=== PATIENT | female | born 1960 | race Two or more races ===

== ENCOUNTER 2024-09-11 11:26 | Outpatient (RCR) | payer MEDICARE, MEDICAID, SELFPAY ==
--- NOTE | 2024-09-11 11:43 | PT.OIERPT ---
PT OP Initial Eval Patient Information Outpatient Physical Therapy Treatment Date: 09/11/24 Visit Reasons: Pain in RT shoulder Medical Diagnosis: M25.511 Start of Care: 09/11/24 Date of Onset: 04/18/24 Smoking Status Smoking Status: Never smoker Initial Assessment Subjective: Pt is 64 yr old icelandic speaking female who reports she fell in April and has had R hand and wrist pain that runs up the arm into the shoulder. She denies R shoulder pain but the wrist hurts. Imaging: mild to moderate OA change is present Pt goal: to get rid of the R wrist and hand pain Objective: R shoulder AROM: Strength: FF: full 4/5 ABd: full 4/5 ER: full 4/5 Assessment: Pt presents with full AROM of R shoulder and good strength. She doesn't need therapy for the R shoulder but would benefit from therapy on the R wrist and hand. The therapy order is for the R shoulder and we need an order for the R wrist and hand to treat that. Short Term and Penitentiary Goals Eval and D/C Treatment Plan Eval and D/C Certification Dates: 09/11/27 Procedure Charges OP PT Eval Mod Complex 30 minutes: Yes
== END 2024-09-14 23:59 | disposition home or self-care (01) ==
LOC: CPTX 11:26
PROVIDERS: PCP Physician Assistant; Referring Provider Physician Assistant; Visit Provider Physician Assistant
DX: M25.511 Pain in right shoulder (principal); M25.531 Pain in right wrist; M79.641 Pain in right hand
CPT/HCPCS: 97162

== ENCOUNTER 2024-10-09 09:00 | Outpatient (RCR) | payer MEDICARE, MEDICAID, SELFPAY ==
--- NOTE | 2024-10-09 09:52 | CTCFLWUP_ITS ---
[facility] [address], [place] [address] FOLLOW-UP NOTE Date: 10/09/2024 MR#: [id number] Name: SUSAN CHARLES : 1960 Dx: C54.1 Malignant neoplasm of endometrium Identification. Patient with vaginal hysterectomy 01/25/2019 show invasive endometrial carcinoma FIGO grade 1 with no extension cervix with 2 positive nodes of 13 removed. Stage III C1 chemotherapy at [facility] consisting of 6 cycles of CarboTaxol with ration therapy sandwiched between the third and fourth cycles. 5000 cGy VMAT completed 07/07/2020. CT scan 08/22/2023 chest abdomen pelvis 3 mm pulm nodule right middle lobe and left lower lobe with no finding of met disease in abdomen pelvis. Repeat CT December 27, 2023 chest stable pulmonary nodules. Labs 10/02/2024 CA125 normal at 9.6. Pelvic exam essentially unremarkable. I will see her in 6 months with another blood test and CT scan Electronically signed by: Shivam Hu M.D. 10/09/2024 9:50 AM
== END 2024-10-15 23:59 | disposition home or self-care (01) ==
LOC: SCTC 09:00
PROVIDERS: PCP Physician Assistant; Referring Provider Radiology Therapeutic Radiology; Visit Provider Radiology Therapeutic Radiology
DX: C54.1 Malignant neoplasm of endometrium (principal); Z90.710 Acquired absence of both cervix and uterus; Z92.3 Personal history of irradiation; R91.8 Other nonspecific abnormal finding of lung field
CPT/HCPCS: 99213; G0463

== ENCOUNTER → 2025-02-20 | Outpatient (CLI) | payer MEDICARE, MEDICAID, SELFPAY ==
[2025-02-20 15:22] LABS: Basophils # (Auto) 0.0 Thou/mm3 (0.0-0.2); Basophils % (Auto) 1 % (0-2.5); Eosinophils # (Auto) 0.1 Thou/mm3 (0.0-0.5); Eosinophils % (Auto) 3 % (0-10); Hematocrit 40.0 % (36.0-46.0); Hemoglobin 13.1 g/dL (12.0-16.0); Immature Granulocytes Auto 0.00 Thou/mm3 (0.00-0.00); Lymphocytes # (Auto) 1.6 Thou/mm3 (1.0-4.8); Lymphocytes % (Auto) 37 % (10-50); Mean Corpuscular HGB Conc 32.8 g/dl (31.0-37.0); Mean Corpuscular Hemoglobin 30.2 pg (25.0-35.0); Mean Corpuscular Volume 92 fL (80-100); Monocytes # (Auto) 0.4 Thou/mm3 (0.0-0.8); Monocytes % (Auto) 9 % (0-12); Neutrophils # (Auto) 2.2 Thou/mm3 (1.8-7.7); Neutrophils % (Auto) 50 % (37-80); Nucleated Red Blood Cell # 0.00 Thou/mm3 (0.00-0.00); Nucleated Red Blood Cell % 0 /100 WBC (0); Platelet Count 242 Thou/mm3 (140-440); RDW Standard Deviation 44.3 fL (36.4-46.3); Red Blood Count 4.34 Miln/mm3 (4.00-5.20); White Blood Count 4.4 Thou/mm3 (3.6-11.0)
[2025-02-20 15:42] LABS: Alanine Aminotransferase 21 U/L (10-49); Albumin, Serum 4.5 gm/dL (3.4-4.8); Albumin/Globulin Ratio 1.7 (1.2-2.2); Alkaline Phosphatase 74 U/L (46-116); Anion Gap 9 (7-16); Aspartate Amino Transferase 21 U/L (0-34); BUN/Creatinine Ratio 20 Ratio (12-20); Bilirubin,Total 0.4 mg/dL (0.3-1.2); Blood Urea Nitrogen 16 mg/dL (9-23); Calcium 9.2 mg/dL (8.3-10.6); Calcium (Corrected) 9.2 mg/dL (8.5-10.1); Carbon Dioxide 25.9 mMol/L (20.0-31.0); Chloride 103 mMol/L (98-107); Creatinine (Component) 0.8 mg/dL (0.6-1.3); Globulin 2.6 gm/dL (2.3-3.5); Glucose 101 mg/dL (74-106); Osmolality,Calculated 276 (275-295); Potassium 4.5 mMol/L (3.4-5.1); Sodium 138 mMol/L (136-145); Total Protein 7.1 gm/dL (5.7-8.2); eGFR > 60 See Note
[2025-02-20 15:57] LABS: CA 125 8.0 U/mL (<30.2)
== END | disposition home or self-care (01) ==
LOC: SCTO 14:48
PROVIDERS: PCP Physician Assistant; Referring Provider Radiology Therapeutic Radiology; Visit Provider Radiology Therapeutic Radiology
DX: C54.1 Malignant neoplasm of endometrium (principal)
CPT/HCPCS: 36415; 80053; 85025; 86304

== ENCOUNTER → 2025-03-07 | Outpatient (CLI) | payer MEDICARE, MEDICAID, SELFPAY ==
--- NOTE | 2025-03-07 15:00 | XR_ITS ---
Examination: CT chest with intravenous contrast CT abdomen with intravenous contrast CT pelvis with intravenous contrast 2-D coronal and sagittal reconstructions Time of exam: March 07, 2025 1515 hours Comparison December 27, 2023 INDICATIONS: Diagnosis malignant neoplasm of the endometrium 2019, restaging, history pulmonary nodules CTDI: vol (mGy) : 9.18 DLP: (mGycm): 622 Technique: Multiple axial images of the chest, abdomen and pelvis with intravenous contrast, 3.0 mm slice thickness. Images obtained post intravenous injection Isovue 370 60 cc. 2-D sagittal and coronal reconstructions. Low dose protocols were performed. One or more of the following dose reduction techniques were used; automated exposure control, adjustment of the mA and/or KV according to patient size, use of iterative reconstruction technique. Findings: No thoracic aorta aneurysm dilatation No pulmonary artery emboli. No paratracheal tracheobronchial or bronchopulmonary adenopathy Stable pulmonary nodules compared with December 27, 2023, no new pulmonary nodules No pneumonia or pulmonary edema or pleural disease No visualized liver or splenic lesion Absent gallbladder No pancreatic or adrenal mass No hydronephrosis Moderate osteopenia IMPRESSION: No interval mediastinal lymphadenopathy Stable pulmonary nodules, no new pulmonary nodules
== END | disposition home or self-care (01) ==
PROVIDERS: PCP Radiology Therapeutic Radiology; Referring Provider Radiology Therapeutic Radiology; Visit Provider Radiology Therapeutic Radiology
DX: R91.8 Other nonspecific abnormal finding of lung field (principal); C54.1 Malignant neoplasm of endometrium
CPT/HCPCS: 71260; 74177; A4649; Q9967

== ENCOUNTER 2025-04-11 09:06 | Outpatient (RCR) | payer MEDICARE, MEDICAID, SELFPAY ==
--- NOTE | 2025-04-11 10:20 | CTCFLWUP_ITS ---
[facility] [address] [place], [place] [address] FOLLOW-UP NOTE Date: 04/11/2025 MR#: [id number] Name: SUSAN CHARLES : 1960 Dx: C54.1 Malignant neoplasm of endometrium Identification. Patient with vaginal hysterectomy 01/25/2019 showed invasive endometrial carcinoma FIGO grade 1 with no extension cervix with 2 positive nodes of 13 removed. Stage III C1 chemotherapy at [facility] consider of 6 cycles of CarboTaxol with radiation therapy sandwiched between the 3rd and 4th cycles. 5000 cGy VMAT completed 07/07/2020. CT scan done regularly showed only nonspecific findings include the most recent CT 01/05/2025 of chest abdomen pelvis showing stable nodules no new pulmonary nodules no interval mediastinal lymphadenopathy. CA125 has remained low including 9.6 on 10/03/2024. Pelvic exam performed and no suspicious masses seen or felt. Assessment.#1. Stage III C1 endometrial carcinoma grade 1 status post surgery chemoradiation completed 07/07/2020. #2. No evidence of recurrence clinically radiographically biochemically after 5 years. #3. according to NCCN guidelines only annual checkups needed. From now on. #4 informed patient that she could make an appointmnt to see me annually and to see primary care provider for any pelvic or gynecological symptoms. Cc: Nathaniel Dean Electronically signed by: Shivam Hu M.D. 04/11/2025 10:18 AM
== END 2025-04-16 23:59 | disposition home or self-care (01) ==
LOC: SCTC 09:06
PROVIDERS: PCP Physician Assistant; Referring Provider Physician Assistant; Visit Provider Radiology Therapeutic Radiology
DX: Z08 Encounter for follow-up examination after completed treatment for malignant neoplasm (principal); Z85.42 Personal history of malignant neoplasm of other parts of uterus; Z90.710 Acquired absence of both cervix and uterus; Z92.21 Personal history of antineoplastic chemotherapy; Z92.3 Personal history of irradiation
CPT/HCPCS: 99213; G0463